=== PATIENT | female | born 1940 | race Caucasian/White ===

== ENCOUNTER → 2017-10-17 | Outpatient (CLI) | payer MEDICARE, MEDICAID ==
[~2017-10-17] MED LIST: ACE500 PO; ACYC-50 PO; ALE70 PO; ATOR20TA22 PO; CEPH500T7 PO; DIA10 PO; DOC100 PO; DULO60CA51 PO; GAB100 PO; LEVO-85 PO; MIRT-22 PO; MULTIVITAMIN PO; NAPR-723 PO; OMEP-153 PO; PRE10 PO; PRE20 PO; TRIA15OI20 TP; TRIC15T TOP; [UNRECOGNIZED DRUG - CODE] PO; [UNRECOGNIZED DRUG - OTHER] OS; [UNRECOGNIZED DRUG - OTHER] PO
--- NOTE | 2017-10-18 08:28 | RADIOLOGY IMAGING REPORT ---
FACILITY: [facility] - [place] PATIENT NAME: AZUL CARDOZO : [id number] MR: [id number] V: [id number] EXAM DATE: [id number] ORDERING PHYSICIAN: ERICK FOX TECHNOLOGIST: Kathleen Cross PROCEDURE:BILATERAL DIGITAL SCREENING MAMMOGRAM WITH CAD ASSISTED INTERPRETATION & 3D TOMOSYNTHESIS COMPARISON:Prior mammograms 09/29/16, 09/10/14, 08/29/13, 09/11/12, 08/28/12, 07/13/11, 07/08/10, 07/02/09, 11/18/03. INDICATIONS:screening FINDINGS: Moderately dense heterogeneous fibroglandular tissue is seen throughout the breasts. The parenchymal pattern has remained stable allowing for difference in mammographic technique & patient positioning. There is no evidence of malignant appearing mass, malignant appearing calcifications or other secondary sign of malignancy in either breast. DIAGNOSTIC CATEGORY 1--NEGATIVE. RECOMMENDATIONS: ROUTINE MAMMOGRAM AND CLINICAL EVALUATION. IMPRESSION: BIRADS 1: Negative No significant abnormality is seen. Dictated by: Nayeli Saini M.D. on 10/17/2017 at 15:48 Transcribed by: MAD[place] on 10/17/2017 at 16:05 Approved by: Nayeli Saini M.D. on 10/18/2017 at 8:27 [facility]
== END ==
LOC: MAMO 10-03 00:50
PROVIDERS: ATTEND Nurse Practitioner Family
DX: Z12.31 Encounter for screening mammogram for malignant neoplasm of breast (principal)
CPT/HCPCS: 77063; 77067

== ENCOUNTER → 2018-12-06 | Outpatient (CLI) | payer MEDICARE, MEDICAID ==
[~2018-12-06] MED LIST changes: +BACOO OP; +CA C1TAB11 PO; +CETY454C2 TP; +COAL130S5; +FOLI200T11; +GABA-551 PO; +GUAI-244 PO; +HYDR30CR10 TP; +IOPAMIDOL 76% 100 ML INFUS BTL 100 ML ONE; +MIRT7.5T2 PO; +OMEG-11 PO; +OMEG-23 PO; +PRAV40TA78 PO
--- NOTE | 2018-12-06 10:29 | RADIOLOGY IMAGING REPORT ---
FACILITY: [facility] - [place] PATIENT NAME: Sonia Cornell : 1940 MR: [id number] V: [id number] EXAM DATE: ORDERING PHYSICIAN: ERICK FOX TECHNOLOGIST: Location: [facility] [place] Patient: Sonia Cornell : 1940 Visit/Account:[id number] Date of Sevice: 12/06/2018 CT ABDOMEN PELVIS W/ CON HISTORY: There is a 5, and I will changes and shortness of breath. TECHNIQUE: CT abdomen and pelvis 75 cc of Isovue 370 IV. One of the following dose optimization [employer] was utilized in the performance of this exam: automated exposure control; adjustment of the m A and/or kV according to the patient's size; or use of an iterative reconstruction technique. Specif ic details can be referenced in the facility's radiology CT exam operational policy. COMPARISON: None. FINDINGS: Liver/gallbladder: The liver demonstrates normal enhancement. Gallbladder is unremarkable. Spleen: Normal. Adrenals: Normal. Pancreas: Normal enhancement without evidence of mass. Kidneys/: The right and left kidney demonstrate normal enhancement without evidence of hydronephro sis or mass. Both ureters are normal. Pelvis: The urinary bladder and uterus are normal. GI: Large amount of stool throughout the colon is seen. Small bowel and stomach are normal. Vessels/spaces/nodes: Negative. Bones/soft tissues: There is a moderate compression fracture at T12. Degenerative disc disease azul ges seen at L1-2 and L2-3. Visualized lung bases: Clear. IMPRESSION 1. Compression fracture T12, indeterminate age. 2. Degenerative disc disease changes at L1-L2 3 and L3-4. 3. Moderate amount of stool throughout the colon consistent with constipation. Report Dictated By: Blaine Multani at 12/06/2018 10:15 AM Report E-Signed By: Blaine Multani at 12/06/2018 10:23 AM WSN:AIDE
== END ==
LOC: CT 00:23
PROVIDERS: ATTEND Nurse Practitioner Family
DX: R06.00 Dyspnea, unspecified (principal); R62.7 Adult failure to thrive; R19.4 Change in bowel habit; F89 Unspecified disorder of psychological development; Z87.440 Personal history of urinary (tract) infections
CPT/HCPCS: 74177; Q9967